=== PATIENT | female | born 1930 | race Asian ===

== ENCOUNTER 2016-11-23 13:20 | Emergency (ER) | payer MEDICARE, MEDICAID ==
[~2016-11-23] VITALS: Ht 152.4 cm; Wt 72.7 kg
[~2016-11-23 13:20] MED LIST: ALBU17AE2 IH; ASPI-556 PO; DOCU100C19 PO; FLUT1DIS5 IH; LEVO250 PO; LISI10TA PO; LORA0.5T83 PO; MONT10TA21 PO; PANT20TA PO; PRED10TA23 PO; PRED20TA3 PO; PRED50TA2 PO; SERT25TA PO; SIMV20 PO; TIOT185 IH; [UNRECOGNIZED DRUG - CODE] PO
[2016-11-23 13:47] LABS: GLUCOSE,POINT OF CARE 126 MG/DL (70-110)
[2016-11-23] MEDS ORDERED: PANT40TA25 PO (13:59)
[2016-11-23] MEDS ORDERED: GUAIF600 PO (13:59)
[2016-11-23] MEDS ORDERED: SODIUM CHLORIDE 0.9% 1,000 ML IV ONE (14:00)
[2016-11-23] MEDS ORDERED: ONDANSETRON HCL 4 MG/2 ML VIAL IVP ONE (14:00)
[2016-11-23 14:14] LABS: BASOPHILS % (AUTO) 0.2 % (0.0-2.0); EOSINOPHILS % (AUTO) 0.6 % (1.0-6.0); HEMATOCRIT 42.8 % (36-46); HEMOGLOBIN 13.7 g/dL (12.0-16.0); LYMPHOCYTES # (AUTO) 1.2 K/uL (1.0-4.8); LYMPHOCYTES % (AUTO) 12.8 % (22.0-44.0); MEAN CORPUSCULAR HEMOGLOBIN 29.3 pg (26.0-34.0); MEAN CORPUSCULAR VOLUME 92 fL (80-100); MONOCYTES # (AUTO) 0.5 K/uL (0.1-1.0); MONOCYTES % (AUTO) 5.4 % (2.0-9.0); NEUTROPHILS # (AUTO) 7.6 K/uL (1.8-7.7); PLATELET COUNT (AUTO) 153 K/uL (150-450); RED BLOOD CELL COUNT(AUTO) 4.67 MIL/uL (4.00-5.20); RED CELL DISTRIBUTION WIDTH 14.2 % (11.5-14.5); WHITE BLOOD COUNT (AUTO) 9.4 K/uL (4.5-11.0)
[2016-11-23 14:59] LABS: CALCIUM, TOTAL 9.1 mg/dL (8.8-10.5); CREATININE 1.32 mg/dL (0.60-1.30); POTASSIUM 3.5 mmol/L (3.5-5.1)
[2016-11-23 15:05] LABS: ALBUMIN 3.3 g/dL (3.4-5.0); BILIRUBIN,TOTAL 0.7 mg/dL (0.1-1.0)
[2016-11-23 15:36] LABS: APPEARANCE,URINE CLOUDY (CLEAR); GLUCOSE, URINE (UA) NEGATIVE (NEGATIVE); KETONES,URINE TRACE mg/dL (NEGATIVE); LEUKOCYTE ESTERASE ,URINE TRACE (NEGATIVE); OCCULT BLOOD,URINE NEGATIVE (NEGATIVE); PH,URINE 5.5 (5.0-8.0); PROTEIN,URINE SEE CONFIRM (NEGATIVE)
[2016-11-23 15:53] LABS: ADD UA MICROSCOPIC YES
[2016-11-23 15:54] LABS: FINE GRANULAR CASTS,URINE 0-2 /LPF (None Seen); RBC,URINE 0-2 /HPF (0-2); SQUAMOUS EPITHELIAL CELL,UR Moderate /LPF (None Seen); SULFOSALICYLIC ACID,URINE 2+ (Negative)
[2016-11-23 16:55] VITALS: BP 142/78
== END 2016-11-23 17:04 | disposition home or self-care (01) ==
LOC: EMS 13:21
DX: R42 Dizziness and giddiness (principal); R11.2 Nausea with vomiting, unspecified; I11.0 Hypertensive heart disease with heart failure; I50.9 Heart failure, unspecified; J44.9 Chronic obstructive pulmonary disease, unspecified; K21.9 Gastro-esophageal reflux disease without esophagitis; F17.210 Nicotine dependence, cigarettes, uncomplicated
CPT/HCPCS: 36415; 80053; 81001; 81002; 82962; 83690; 83880; 84484; 85025; 93005; 96361; 96374; 99285; 99406; J2405; J7030

== ENCOUNTER 2017-02-25 05:17 | Emergency (ER) | payer MEDICARE, MEDICAID ==
[~2017-02-25] VITALS: Ht 152.4 cm; Wt 68.0 kg
[~2017-02-25 05:17] MED LIST changes: +GUAIF600 PO; -LEVO250 PO; -PANT20TA PO; +PANT40TA25 PO; -PRED10TA23 PO; -PRED20TA3 PO; -PRED50TA2 PO; +SIMV-260 PO; -SIMV20 PO; -[UNRECOGNIZED DRUG - CODE] PO
[2017-02-25 06:31] VITALS: BP 119/71
== END 2017-02-25 06:47 | disposition home or self-care (01) ==
LOC: EMS 05:19
DX: R42 Dizziness and giddiness (principal); R10.9 Unspecified abdominal pain; I11.0 Hypertensive heart disease with heart failure; I50.9 Heart failure, unspecified; J44.9 Chronic obstructive pulmonary disease, unspecified; K21.9 Gastro-esophageal reflux disease without esophagitis; F17.210 Nicotine dependence, cigarettes, uncomplicated
CPT/HCPCS: 93005; 99285

== ENCOUNTER → 2017-04-15 | Outpatient (CLI) | payer MEDICARE, OTHER | END | disposition home or self-care (01) | LOC: RADMN 10:28 | PROVIDERS: ATTEND Internal Medicine | DX: R13.10 Dysphagia, unspecified (principal) | CPT/HCPCS: 74230; 92611 ==

== ENCOUNTER → 2017-05-26 | Outpatient (CLI) | payer MEDICARE, OTHER | END | disposition home or self-care (01) | LOC: RADPV 12:29 | PROVIDERS: ATTEND Internal Medicine | DX: J47.9 Bronchiectasis, uncomplicated (principal); J98.4 Other disorders of lung; I51.7 Cardiomegaly | CPT/HCPCS: 71020 ==